=== PATIENT | female | born 1975 | race Caucasian/White ===

== ENCOUNTER 2017-01-05 18:12 | Emergency (ER) | payer SELFPAY ==
[~2017-01-05 18:12] MED LIST: LORA0.5T96 PO
[2017-01-05 18:43] VITALS: BP 139/86
[2017-01-05] MEDS ORDERED: DEXAMETHASONE SOD PHOS 20 MG/5 ML VIAL. ONE (18:55)
[2017-01-05] MEDS ORDERED: LIDO20SO PO (18:58)
[2017-01-05] MEDS ORDERED: AMOX875T PO (18:58)
[2017-01-05] MEDS ORDERED: PRED50TA PO (18:58)
--- NOTE | 2017-01-05 18:59 | PHYS DOC ---
Past Medical History Past Medical History: No Pertinent History, Anxiety, Depression, Other Additional Past Medical Histor: TUBAL Past Surgical History: Cholecystectomy Additional Past Surgical Histo: d&c, fallopian tubes removed d/t tubal pregnancies Alcohol Use: None Drug Use: None Adult General Chief Complaint Chief Complaint: SORE THROAT HPI HPI Patient is a 41 year old female with history of depression and anxiety who presents today with bilateral ear pain, sore throat and fever since yesterday. Review of Systems Review of Systems Constitutional: Fever Eyes: Denies change in visual acuity, redness, or eye pain [] HENT: sore throat [] Respiratory: Denies cough or shortness of breath [] Cardiovascular: No additional information not addressed in HPI [] GI: Denies abdominal pain, nausea, vomiting, bloody stools or diarrhea [] : Denies dysuria or hematuria [] Musculoskeletal: Denies back pain or joint pain [] Integument: Denies rash or skin lesions [] Neurologic: Denies headache, focal weakness or sensory changes [] Endocrine: Denies polyuria or polydipsia [] Allergies Allergies Allergies Coded Allergies Type Severity Reaction Last Updated Verified morphine Allergy Severe Anaphylaxis 04/22/16 Yes Physical Exam Physical Exam Constitutional: Well developed, well nourished, no acute distress, non-toxic appearance. [] HENT: Normocephalic, atraumatic, bilateral external ears normal, oropharynx moist, no oral exudates, nose normal. [] Bilateral TM with small amount of cloudy fluid, and mild erythema. +3 tonsils with mild exudate bilaterally, midline uvula. The airway is open. Eyes: PERRLA, EOMI, conjunctiva normal, no discharge. [] Neck: Normal range of motion, no tenderness, supple, no stridor. [] Cardiovascular:Heart rate regular rhythm, no murmur [] Lungs & Thorax: Bilateral breath sounds clear to auscultation [] Abdomen: Bowel sounds normal, soft, no tenderness, no masses, no pulsatile masses. [] Skin: Warm, dry, no erythema, no rash. [] Back: No tenderness, no CVA tenderness. [] Extremities: No tenderness, no cyanosis, no clubbing, ROM intact, no edema. [] Neurologic: Alert and oriented X 3, normal motor function, normal sensory function, no focal deficits noted. [] Psychologic: Affect normal, judgement normal, mood normal. [] Current Patient Data Vital Signs Vital Signs Date Time Temp Pulse Resp B/P Pulse Ox O2 Delivery O2 Flow Rate FiO2 01/05/17 18:43 98.1 102 18 99 Room Air 98.1 EKG EKG [] Radiology/Procedures Radiology/Procedures [] Course & Med Decision Making Course & Med Decision Making Pertinent Labs and Imaging studies reviewed. (See chart for details) Patient has acute tonsillitis and otitis media. Discharged with amoxicillin for 10 days. She was given Decadron injection in the ED and discharged with prednisone. Follow-up with PCP in one week. Provided proper return precautions. Dragon Disclaimer Dragon Disclaimer This electronic medical record was generated, in whole or in part, using a voice recognition dictation system. Departure Departure Impression: Primary Impression: Otitis media Additional Impression: Acute tonsillitis Disposition: HOME, SELF-CARE Condition: STABLE Referrals: NO PCP (PCP) Follow-up with your doctor in one week Patient Instructions: Otitis Media, Adult, Tonsillitis, [id number] Additional Instructions: You were seen for bilateral otitis media and tonsillitis. Please complete your antibiotics. Come back to the ED at any point symptoms worsen. Take the prescribed prednisone as ordered, use saltwater gargles as needed for sore throat. Follow-up with your doctor in one week. Scripts Lidocaine Hcl (Lidocaine Hcl Viscous)20 Mg/1 Ml Solution5 Ml PO TID #100 ML Prov:MARIAM GALAN APRN 01/05/17 Prednisone 50 Mg Tablet1 Tab PO DAILY #4 TAB Prov:MARIAM GALAN APRN 01/05/17 Amoxicillin 875 Mg Tablet1 Tab PO BID #20 TAB Prov:MARIAM GALAN APRN 01/05/17 Problem Qualifiers Primary Impression: Otitis media Otitis media type: other nonsuppurative Laterality: bilateral Chronicity: acute Recurrence: not specified as recurrent Qualified Code: H65.193 - Other acute nonsuppurative otitis media, bilateral Additional Impression: Acute tonsillitis Pharyngitis/tonsillitis etiology: unspecified etiology Qualified Code: J03.90 - Acute tonsillitis, unspecified MARIAM GALAN APRN Jan 05, 2017 18:59
[2017-01-05] MEDS ORDERED: DEXAMETHASONE SOD PHOS 20 MG/5 ML VIAL. IM ONE (19:45)
== END 2017-01-05 19:06 | disposition home or self-care (01) ==
LOC: ER 18:12
DX: H65.193 Other acute nonsuppurative otitis media, bilateral (principal); J03.90 Acute tonsillitis, unspecified; Z88.5 Allergy status to narcotic agent
CPT/HCPCS: 96372; 99283; J1100

== ENCOUNTER 2017-10-23 13:10 | Emergency (ER) | payer SELFPAY ==
[2017-10-23] MEDS: CYCLOBENZAPRINE 10 MG TABLET. PO ×2 (15:03)
[2017-10-23] MEDS: predniSONE 20 MG TABLET PO ×2 (15:03)
[2017-10-23] MEDS: NAPROXEN 500 MG TABLET PO ×2 (15:04)
== END 2017-10-23 15:13 | disposition home or self-care (01) ==
LOC: ER 13:10
DX: S40.012A Contusion of left shoulder, initial encounter (principal); Z88.5 Allergy status to narcotic agent; W19.XXXA Unspecified fall, initial encounter; Y93.89 Activity, other specified; Y92.89 Other specified places as the place of occurrence of the external cause; Y99.8 Other external cause status
CPT/HCPCS: 73030; 99284; J7512

== ENCOUNTER 2017-11-05 15:55 | Emergency (ER) | payer SELFPAY ==
[2017-11-05 16:28] LABS: URINE HCG POC HCG NEGATIVE (Negative)
[2017-11-05] MEDS: LIDOCAINE (700MG/PATCH) PATCH. TD ×2 (17:23)
== END 2017-11-05 17:52 | disposition home or self-care (01) ==
LOC: ER 15:55
DX: M25.512 Pain in left shoulder (principal); M79.605 Pain in left leg; F41.9 Anxiety disorder, unspecified; F32.9 Major depressive disorder, single episode, unspecified; Z90.49 Acquired absence of other specified parts of digestive tract; Z88.5 Allergy status to narcotic agent
CPT/HCPCS: 73030; 81025; 99284

== ENCOUNTER 2018-09-28 16:46 | Emergency (ER) | payer SELFPAY ==
[~2018-09-28] VITALS: Ht 170.2 cm; Wt 102.1 kg
[~2018-09-28 16:46] MED LIST changes: +AMOX875T PO; +CYCL10TA2 PO; +DICL50TA4 PO; +LIDO20SO PO; +LIDO700A21 TP; +METH4TAB2 PO; +NAPR-514 PO; +PRED50TA PO
[2018-09-28 17:26] VITALS: BP 143/78
[2018-09-28] MEDS ORDERED: CYCLOBENZAPRINE 10 MG TABLET. PO ONE (17:30)
[2018-09-28] MEDS ORDERED: KETOROLAC 60 MG/2 ML VIAL. IM ONE (17:30)
[2018-09-28 17:45] LABS: BILIRUBIN,URINE NEGATIVE (NEG); CLARITY,URINE CLEAR; COLOR,URINE YELLOW; NITRITE,URINE NEGATIVE (NEG); PROTEIN,URINE NEGATIVE (NEG-TRACE)
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
[2018-09-28 18:01] LABS: BACTERIA,URINE 0 /HPF (0-FEW); RBC,URINE 0 /HPF (0-2); SQUAMOUS EPITHELIAL CELL,UR OCC /LPF
[2018-09-28] MEDS ORDERED: CYCL10TA2 PO (18:05)
[2018-09-28] MEDS ORDERED: NAPR-514 PO (18:05)
== END 2018-09-28 18:25 | disposition home or self-care (01) ==
LOC: ER 16:46
DX: M54.5 Low back pain (principal); E66.9 Obesity, unspecified; Z68.35 Body mass index [BMI] 35.0-35.9, adult; F41.9 Anxiety disorder, unspecified; F32.9 Major depressive disorder, single episode, unspecified; Z90.49 Acquired absence of other specified parts of digestive tract; Z88.5 Allergy status to narcotic agent; V43.52XA Car driver injured in collision with other type car in traffic accident, initial encounter; Y93.89 Activity, other specified; Y92.410 Unspecified street and highway as the place of occurrence of the external cause; Y99.8 Other external cause status
CPT/HCPCS: 81001; 81025; 96372; 99283; J1885; 87086; 87186

== ENCOUNTER 2019-03-26 04:37 | Emergency (ER) | payer OTHER ==
[~2019-03-26] VITALS: Ht 170.2 cm; Wt 102.1 kg
[2019-03-26] MEDS ORDERED: ASPIRIN CHEWABLE 81 MG TABLET. PO ONE (05:30)
[2019-03-26 05:46] LABS: CALCIUM 9.1 mg/dL (8.5-10.1); CREATININE 0.7 mg/dL (0.6-1.0); GFR 91.8; POTASSIUM 3.5 mmol/L (3.5-5.1)
[2019-03-26 05:52] LABS: ALBUMIN 3.6 g/dL (3.4-5.0); ALBUMIN/GLOBULIN RATIO 0.8 (1.0-1.7); TOTAL BILIRUBIN 0.3 mg/dL (0.2-1.0)
--- NOTE | 2019-03-26 05:58 | PHYS DOC ---
Past Medical History Past Medical History: Anxiety, Depression, Other Additional Past Medical Histor: TUBAL (DAVID WRIGHT MD) Past Surgical History: Cholecystectomy Additional Past Surgical Histo: d&c, fallopian tubes removed d/t tubal pregnancies (DAVID WRIGHT MD) Alcohol Use: None Drug Use: None (DAVID WRIGHT MD) Adult General Chief Complaint Chief Complaint: CHEST PAIN HPI HPI Patient is a 43 year old female history of anxiety who is presenting with chest pain. Sharp chest pain woke her from sleep around 3:30 left side of the chest and then began to become sore pressure-like pain. She thought she might be a nxious but she was having some increased pain when she was walking so she came to the emergency room for evaluation. (DAVID WRIGHT MD) Review of Systems Review of Systems Constitutional: Denies fever or chills [] Eyes: Denies change in visual acuity, redness, or eye pain [] HENT: Denies nasal congestion or sore throat [] Respiratory: Negative for shortness of breath negative for oral contraceptive use negative for previous history of PE or DVT negative for leg swelling Cardiovascular: No additional information not addressed in HPI [] GI: Denies abdominal pain, nausea, vomiting, bloody stools or diarrhea [] : Denies dysuria or hematuria [] Musculoskeletal: Denies back pain or joint pain [] Integument: Denies rash or skin lesions [] Neurologic: Denies headache, focal weakness or sensory changes [] Endocrine: Denies polyuria or polydipsia [] All other systems were reviewed and found to be within normal limits, except as documented in this note. (DAVID WRIGHT MD) Current Medications Current Medications Current Medications Medications (Trade) Dose Ordered Sig/[facility] Start Time Stop Time Status Last Admin Dose Admin Aspirin (Children'S Aspirin) 324 mg 1X ONCE 03/26/19 05:30 03/26/19 05:31 DC 03/26/19 05:22 324 MG Lorazepam (Ativan Inj) 1 mg 1X ONCE 03/26/19 05:30 03/26/19 05:31 DC Lorazepam (Ativan) 1 mg 1X ONCE 03/26/19 06:00 03/26/19 06:01 DC 03/26/19 05:45 1 MG (GEETHA MERCADO MD) Allergies Allergies Allergies Coded Allergies Type Severity Reaction Last Updated Verified morphine Allergy Severe Anaphylaxis 04/22/16 Yes (GEETHA MERCADO MD) Physical Exam Physical Exam Constitutional: Well developed, well nourished, no acute distress, non-toxic appearance. [] HENT: Normocephalic, atraumatic, bilateral external ears normal, oropharynx moist, no oral exudates, nose normal. [] Eyes: PERRLA, EOMI, conjunctiva normal, no discharge. [] Neck: Normal range of motion, no tenderness, supple, no stridor. [] Cardiovascular:Heart rate regular rhythm, no murmur [] Lungs & Thorax: Bilateral breath sounds clear to auscultation [] Abdomen: Bowel sounds normal, soft, no tenderness, no masses, no pulsatile masses. [] Skin: Warm, dry, no erythema, no rash. [] Back: No tenderness, no CVA tenderness. [] Extremities: No tenderness, no cyanosis, no clubbing, ROM intact, no edema. [] Neurologic: Alert and oriented X 3, normal motor function, normal sensory function, no focal deficits noted. [] Psychologic: Affect normal, judgement normal, mood normal. [] (DAVID WRIGHT MD) Current Patient Data Vital Signs Vital Signs Date Time Temp Pulse Resp B/P (MAP) Pulse Ox O2 Delivery O2 Flow Rate FiO2 03/26/19 07:56 73 107/60 (76) 99 Room Air 03/26/19 07:36 14 03/26/19 04:40 97.3 97.3 (GEETHA MERCADO MD) Lab Values Laboratory Tests Test 03/26/19 05:20 03/26/19 07:14 White Blood Count 9.2 x10^3/uL (4.0-11.0) Red Blood Count 4.56 x10^6/uL (3.50-5.40) Hemoglobin 12.1 g/dL (12.0-15.5) Hematocrit 36.9 % (36.0-47.0) Mean Corpuscular Volume 81 fL (79-100) Mean Corpuscular Hemoglobin 27 pg (25-35) Mean Corpuscular Hemoglobin Concent 33 g/dL (31-37) Red Cell Distribution Width 17.6 % (11.5-14.5) H Platelet Count 337 x10^3/uL (140-400) Neutrophils (%) (Auto) 63 % (31-73) Lymphocytes (%) (Auto) 27 % (24-48) Monocytes (%) (Auto) 8 % (0-9) Eosinophils (%) (Auto) 1 % (0-3) Basophils (%) (Auto) 0 % (0-3) Neutrophils # (Auto) 5.8 x10^3uL (1.8-7.7) Lymphocytes # (Auto) 2.5 x10^3/uL (1.0-4.8) Monocytes # (Auto) 0.8 x10^3/uL (0.0-1.1) Eosinophils # (Auto) 0.1 x10^3/uL (0.0-0.7) Basophils # (Auto) 0.0 x10^3/uL (0.0-0.2) Maternal Serum HCG Beta Subunit < 1 mIU/mL (0-5) Sodium Level 138 mmol/L (136-145) Potassium Level 3.5 mmol/L (3.5-5.1) Chloride Level 103 mmol/L (98-107) Carbon Dioxide Level 26 mmol/L (21-32) Anion Gap 9 (6-14) Blood Urea Nitrogen 18 mg/dL (7-20) Creatinine 0.7 mg/dL (0.6-1.0) Estimated GFR (Cockcroft-Gault) 91.8 BUN/Creatinine Ratio 26 (6-20) H Glucose Level 108 mg/dL (70-99) H Calcium Level 9.1 mg/dL (8.5-10.1) Total Bilirubin 0.3 mg/dL (0.2-1.0) Aspartate Amino Transferase (AST) 13 U/L (15-37) L Alanine Aminotransferase (ALT) 19 U/L (14-59) Alkaline Phosphatase 79 U/L (46-116) Troponin I Quantitative < 0.017 ng/mL (0.000-0.055) < 0.017 ng/mL (0.000-0.055) Total Protein 8.0 g/dL (6.4-8.2) Albumin 3.6 g/dL (3.4-5.0) Albumin/Globulin Ratio 0.8 (1.0-1.7) L Laboratory Tests 7/8/19 05:20 Laboratory Tests 03/26/19 05:20 (GEETHA MERCADO MD) EKG EKG []Normal sinus rhythm rate of 79 no acute ischemic changes noted interpreted by me the time of encounter. (DAVID WRIGHT MD) Radiology/Procedures Radiology/Procedures [] (DAVID WRIGHT MD) Radiology/Procedures [facility] [address] [place] [address] IMAGING REPORT Signed PATIENT: CARLOS DUNCAN ACCOUNT: [id number] : 1975 LOCATION: ER AGE: 43 SEX: F EXAM STATUS: DEP ER ORD. PHYSICIAN: DAVID WRIGHT MD REASON: cp PROCEDURE: PORTABLE CHEST 1V PORTABLE CHEST 1V History: Chest pain Comparison: September 22, 2016 Findings: Single view of the chest is submitted. There is no infiltrate, pneumothorax, or effusion. The pericardial cardiac silhouette is within normal limits in size. Impression: 1. There is no radiographic evidence of acute cardiopulmonary disease. Electronically signed by: Randell Sheppard MD (03/26/2019 8:04 AM) [id number] DICTATED and SIGNED BY: RANDELL SHEPPARD MD DATE: 03/26/19 08 (EGETHA MERCADO MD) Course & Med Decision Making Course & Med Decision Making Pertinent Labs and Imaging studies reviewed. (See chart for details) []h 1 e 0 a 0 r 1 t 0 pt does have family hx of cad but pain seems very atypical. perc negative doubt pe plan for second trop at 0700 , s/o tokousha, cxr and cbc pending as well (DAVID WRIGHT MD) Course & Med Decision Making Patient's care transferred to [place] at 0600. Patient denies any chest pain. Waiting for repeat troponin. Second set of troponin was negative. Patient was chest pain free. Plan discharge patient home with instruction to follow-up with her primary care physician. (GEETHA MERCADO MD) Dragon Disclaimer Dragon Disclaimer This electronic medical record was generated, in whole or in part, using a voice recognition dictation system. (DAVID WRIGHT MD) Departure Departure Impression: Primary Impression: Chest pain Disposition: HOME, SELF-CARE (at 0755) Condition: IMPROVED Referrals: NO PCP (PCP) Patient Instructions: Chest Wall Pain Additional Instructions: Follow-up with your primary care physician in 3-5 days Return to ER if not getting better Scripts Tramadol Hcl (ULTRAM) 50 Mg Tablet 50 MG PO Q6HRS PRN for PAIN, #14 TAB 0 Refills Prov: GEETHA MERCADO MD 03/26/19 Problem Qualifiers Primary Impression: Chest pain Chest pain type: unspecified Qualified Codes: R07.9 - Chest pain, unspecified DAVID WRIGHT MD Mar 26, 2019 05:58 GEETHA MERCADO MD Mar 26, 2019 07:08
[2019-03-26] MEDS ORDERED: LORazepam 0.5 MG TABLET PO ONE (06:00)
[2019-03-26 06:04] LABS: BASO % 0 % (0-3); EOS # 0.1 x10^3/uL (0.0-0.7); EOS % 1 % (0-3); HEMATOCRIT 36.9 % (36.0-47.0); HEMOGLOBIN 12.1 g/dL (12.0-15.5); LYMPH # 2.5 x10^3/uL (1.0-4.8); LYMPH % 27 % (24-48); MEAN CORPUSCULAR HEMOGLOBIN 27 pg (25-35); MEAN CORPUSCULAR HGB CONC 33 g/dL (31-37); MEAN CORPUSCULAR VOLUME 81 fL (79-100); MONO # 0.8 x10^3/uL (0.0-1.1); MONO % 8 % (0-9); NEUT # 5.8 x10^3uL (1.8-7.7); NEUT % 63 % (31-73); PLATELET COUNT 337 x10^3/uL (140-400); RED BLOOD COUNT 4.56 x10^6/uL (3.50-5.40); RED CELL DISTRIBUTION WIDTH 17.6 % (11.5-14.5); WHITE BLOOD COUNT 9.2 x10^3/uL (4.0-11.0)
[2019-03-26 07:56] VITALS: BP 107/60
[2019-03-26] MEDS ORDERED: TRAM-48 PO (07:59)
--- NOTE | 2019-03-26 08:07 | RAD ---
PORTABLE CHEST 1V History: Chest pain Comparison: September 22, 2016 Findings: Single view of the chest is submitted. There is no infiltrate, pneumothorax, or effusion. The pericardial cardiac silhouette is within normal limits in size. Impression: 1. There is no radiographic evidence of acute cardiopulmonary disease. Electronically signed by: Felix Lopez MD (03/26/2019 8:04 AM) [id number]
--- NOTE | 2019-03-26 08:57 | EKG ---
[facility] [address] [place] [address] Test Date: 2019-03-26 Test Time: 04:42:10 Pat Name: CARLOS DUNCAN Department: Room: Gender: F Education Department Chair: MORE : 1975 Requested By: DAVID WRIGHT Order Number: [id number] Reading MD: Measurements Intervals [place] Rate: 79 P: 26 AL: 152 QRS: -3 QRSD: 64 T: 0 QT: 350 QTc: 402 Interpretive Statements SINUS RHYTHM LEFTWARD AXIS NON SPECIFIC T ABNORMALITY BORDERLINE ECG No previous ECG available for comparison
== END 2019-03-26 08:04 | disposition home or self-care (01) ==
LOC: ER 04:37
DX: R07.89 Other chest pain (principal); F41.9 Anxiety disorder, unspecified; F32.9 Major depressive disorder, single episode, unspecified; Z88.5 Allergy status to narcotic agent
CPT/HCPCS: 36415; 71045; 80053; 84484; 84702; 85025; 93005; 99285-25